=== PATIENT | male | born 1990 | race American Indian/Alaskan Native ===

== ENCOUNTER 2019-08-14 21:32 | Emergency (ER) | payer SELFPAY ==
--- NOTE | 2019-08-15 02:59 | Emergency Department Report ---
Chief Complaint: Back Pain/Injury Stated Complaint: BACK/NECK PAIN Time Seen by Provider: 08/15/19 02:29 - HPI History of Present Illness: Patient is a 29-year-old male presents emergency room with complaints of back and neck discomfort that began 3 weeks ago. He states that it feels like a muscle soreness. He states that he started a new job 3 weeks ago. He states he works for a [employer] and can constantly does heavy lifting. He denies any fall, injury, numbness, weakness, bowel or bladder incontinence, fever, nausea, vomiting, diarrhea. Patient has not taken anything for it or has not done anything to alleviate his symptoms. He denies any past medical history. He denies any allergies to medications. Patient states that he did not go to work today and is requesting a work excuse. Vitals are stable ROS: All systems reviewed and are negative except for as documented in HPI on exam: Non toxic appearing, no acute distress atraumatic, normocephalic normal appearance of the eyes, PERRL, EOMI, no periorbital edema or ecchymosis moist mucus membranes regular heart rate and rhythm, no gallops, no rubs, no murmurs breath sounds are clear bilaterally, no w/r/r No paraspinal or midline spinal C-spine, T-spine, L-spine tenderness to palpation, no step-offs, no deformities A&O x4, no focal neuro deficit, 5/5 strength in the BUE/BLE, sensation intact throughout, normal gait skin is warm, dry, intact Patient is presenting with a muscle strain from heavy lifting Patient has no midline tenderness, no neuro deficit Patient has no red flag warning signs of back pain, no trauma, no unexplained weight loss, no neuro deficits, no age greater than 50, no fever, no IV drug use, no steroid use, no history of cancer Discussed symptomatic treatment and supportive care with patient Patient will be referred to a primary care physician discussed strict return precautions with patient Medical screening examination performed and there is no threat to life or limb at this time - Exam Vital Signs: Vital Signs 08/14/19 21:42 Temperature 97.7 F Pulse Rate 83 Respiratory 18 Rate Blood Pressure 146/88 O2 Sat by Pulse 98 Oximetry MSE screening note: Focused history and physical exam performed. ED Disposition for MSE Clinical Impression: Back strain Qualifiers: Encounter type: initial encounter Qualified Code(s): S39.012A - Strain of muscle, fascia and tendon of lower back, initial encounter Disposition: MED SCREENING EXAM-LEFT Is pt being admited?: No Does the pt Need Aspirin: No Condition: Stable Instructions: Muscle Strain (ED) Additional Instructions: May alternate Tylenol then ibuprofen every 6 hours as needed for pain. May use ice pack, heating pad, rest, Epson salt bath. May do stretching. Please make sure when you are lifting that you are lifting correctly in order to prevent hurting your back. Follow-up with your primary care doctor. Return to the emergency room for any new or worsening symptoms. Referrals: JUNG RICHARDS MD [Staff Physician] - 3-5 Days [facility] [Outside] - 3-5 Days [facility] [Outside] - 3-5 Days Forms: Work/School Release Form(ED) Time of Disposition: 02:59 Print Language: SLOV[place]
[2019-08-15 07:29] VITALS: BP 124/90
== END 2019-08-15 04:00 | disposition left against medical advice (07) ==
LOC: ED 21:32
DX: S39.012A Strain of muscle, fascia and tendon of lower back, initial encounter (principal); M54.2 Cervicalgia; X58.XXXA Exposure to other specified factors, initial encounter; Y93.89 Activity, other specified; Y92.89 Other specified places as the place of occurrence of the external cause; Y99.8 Other external cause status
CPT/HCPCS: 99282